=== PATIENT | female | born 1990 | race Caucasian/White ===

== ENCOUNTER 2020-04-27 15:53 | Emergency (ER) | payer OTHER ==
[2020-04-27] MEDS ORDERED: HYDROCODONE/APAP 10/325 TAB ONE (20:57)
[2020-04-27] MEDS ORDERED: DIAZEPAM 5 MG TABLET ONE (20:58)
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
[2020-04-27 22:53] VITALS: TEMP 97.7
[2020-04-27 22:55] VITALS: O2SAT 97
[2020-04-27 22:56] VITALS: BP 106/59
== END 2020-04-27 22:25 | disposition home or self-care (01) ==
LOC: ER 15:53
DX: S16.1XXA Strain of muscle, fascia and tendon at neck level, initial encounter (principal); S29.012A Strain of muscle and tendon of back wall of thorax, initial encounter; V49.40XA Driver injured in collision with unspecified motor vehicles in traffic accident, initial encounter
CPT/HCPCS: 70450; 72125; 99284